=== PATIENT | female | born 1950 | race Caucasian/White ===

== ENCOUNTER 2017-10-30 17:48 | Inpatient (IN) | payer OTHER ==
[~2017-10-30] VITALS: Ht 182.9 cm; Wt 5.0 kg
[2017-11-09] MEDS ORDERED: TOPROL XL25 M1 PO (12:39)
[2017-11-09] MEDS ORDERED: AMIODARONE HCL200 MG PO (12:39)
[2017-11-09] MEDS ORDERED: ELIQUIS2.5 MG PO (12:39)
[2017-11-09] MEDS ORDERED: PYRIDOXINE HCL100 M1 PO (12:39)
[2017-11-09] MEDS ORDERED: Neurin-Sl Tablet Sl SL (12:39)
[2017-11-09] MEDS ORDERED: INTEGRA F CAPS1 EACH PO (12:39)
[2017-11-09] MEDS ORDERED: LOVENOX30 MG/0.3 SUBCUTANEO (12:39)
[2017-11-09] MEDS ORDERED: PEPCID AC20 MG PO (12:39)
== END 2017-11-09 13:57 | disposition home or self-care (01) | DRG 331 ==
LOC: ER 17:48 → MEDI 20:13 → SURH 20:13
PROVIDERS: Surgery
PROC: 4A033R1 Measurement of Arterial Saturation, Peripheral, Percutaneous Approach (ICD-10-PCS; 2017-10-30)
PROC: B246ZZZ Ultrasonography of Right and Left Heart (ICD-10-PCS; 2017-10-30)
PROC: 4A12X4Z Monitoring of Cardiac Electrical Activity, External Approach (ICD-10-PCS; 2017-10-31)
PROC: 0DTP4ZZ Resection of Rectum, Percutaneous Endoscopic Approach (ICD-10-PCS; 2017-11-03)
PROC: 07TC4ZZ Resection of Pelvis Lymphatic, Percutaneous Endoscopic Approach (ICD-10-PCS; 2017-11-03)
PROC: 0DJD8ZZ Inspection of Lower Intestinal Tract, Via Natural or Artificial Opening Endoscopic (ICD-10-PCS; 2017-11-03)
PROC: 0DTN4ZZ Resection of Sigmoid Colon, Percutaneous Endoscopic Approach (ICD-10-PCS; principal; 2017-11-03 10:45)
DX: C19 Malignant neoplasm of rectosigmoid junction (principal); I48.0 Paroxysmal atrial fibrillation; I12.9 Hypertensive chronic kidney disease with stage 1 through stage 4 chronic kidney disease, or unspecified chronic kidney disease; N18.3 Chronic kidney disease, stage 3 (moderate); D63.1 Anemia in chronic kidney disease